=== PATIENT | male | born 1995 | race Caucasian/White ===

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

== ENCOUNTER → 2017-01-21 | Outpatient (CLI) | payer BC ==
[2017-01-23 15:04] LABS: QUANTIF TB AG-NIL 0.01 IU/ML; QUANTIFERON NIL 0.03 IU/ML
== END | disposition home or self-care (01) ==
LOC: C.LABSPEC 12:10
PROVIDERS: ATTEND Internal Medicine
DX: M77.50 Other enthesopathy of unspecified foot and ankle (principal)